=== PATIENT | female | born 1985 | race Caucasian/White ===

== ENCOUNTER 2018-05-27 11:59 | Outpatient (CLI) | payer OTHER ==
[~2018-05-27] VITALS: Ht 165.1 cm; Wt 106.8 kg
[~2018-05-27 11:59] MED LIST: IBUP-1222 PO; METF100P3 PO; OXYC-302 PO; PNV11TAB PO
[2018-05-27 12:24] VITALS: BP 132/80
[2018-05-27 12:43] LABS: MICROSCOPIC INDICATED
[2018-05-27 12:45] LABS: BASOPHILS # (AUTO) 0.02 x10^3/uL (0-0.1); BASOPHILS % (AUTO) 0 % (0-1); EOSINOPHILS # (AUTO) 0.04 x10^3/uL (0-0.4); EOSINOPHILS % (AUTO) 1 % (1-7); LYMPHOCYTES # (AUTO) 1.62 x10^3/uL (1-3.4); LYMPHOCYTES % (AUTO) 23 % (22-44); MD NO; MEAN CORPUSCULAR HEMOGLOBIN 24.9 pg (27.0-34.8); MEAN CORPUSCULAR HGB CONC 32.6 g/dL (32.4-35.8); MEAN CORPUSCULAR VOLUME 76.1 fL (80-100); MONOCYTES # (AUTO) 0.68 x10^3/uL (0.2-0.8); MONOCYTES % (AUTO) 10 % (2-9); NEUTROPHILS # (AUTO) 4.77 x10^3/uL (1.8-6.8); NEUTROPHILS % (AUTO) 67 % (42-75); PLATELET COUNT 216 x10^3/uL (130-400); RED CELL DISTRIBUTION WIDTH 15.7 % (9.6-15.2)
[2018-05-27 12:56] LABS: ALANINE AMINOTRANSFERASE 17 U/L (12-78); ALBUMIN 2.4 g/dL (3.4-5.0); ANION GAP 11 mmol/L (5-15); CALCIUM 8.2 mg/dL (8.5-10.1); CHLORIDE 107 mmol/L (98-107)
[2018-05-27 12:58] LABS: ALKALINE PHOSPHATASE 115 U/L (45-117); BILIRUBIN, DIRECT < 0.1 mg/dL (0.1-0.2); BILIRUBIN,TOTAL 0.3 mg/dL (0.2-1.0); TOTAL PROTEIN 6.5 g/dL (6.4-8.2)
[2018-05-27] MEDS ORDERED: METF10007 PO (13:17)
[2018-05-27] MEDS ORDERED: BETAMETHASONE 6 MG/ML, 5ML IM ONE ×2 (14:24→14:30)
== END 2018-05-27 14:55 | disposition home or self-care (01) ==
LOC: LDOP 11:59
PROVIDERS: ATTEND Obstetrics & Gynecology
DX: O13.3 Gestational [pregnancy-induced] hypertension without significant proteinuria, third trimester (principal); O30.003 Twin pregnancy, unspecified number of placenta and unspecified number of amniotic sacs, third trimester; Z3A.35 35 weeks gestation of pregnancy
CPT/HCPCS: 36415; 59025; 80053; 81001; 81050; 82248; 82570; 84156; 84550; 85025; 96372; 99201; J0702; G0463

== ENCOUNTER 2018-05-28 14:08 | Outpatient (CLI) | payer OTHER ==
[~2018-05-28] VITALS: Ht 165.1 cm; Wt 106.8 kg
[~2018-05-28 14:08] MED LIST changes: +METF10007 PO
[2018-05-28 14:28] VITALS: BP 126/69
[2018-05-28 14:55] LABS: BASOPHILS # (AUTO) 0.03 x10^3/uL (0-0.1); BASOPHILS % (AUTO) 0 % (0-1); EOSINOPHILS % (AUTO) 0 % (1-7); LYMPHOCYTES # (AUTO) 1.69 x10^3/uL (1-3.4); LYMPHOCYTES % (AUTO) 21 % (22-44); MD NO; MEAN CORPUSCULAR HEMOGLOBIN 25.5 pg (27.0-34.8); MEAN CORPUSCULAR HGB CONC 33.1 g/dL (32.4-35.8); MEAN CORPUSCULAR VOLUME 76.9 fL (80-100); MEAN PLATELET VOLUME 8.1 fL (7.4-10.4); MONOCYTES % (AUTO) 9 % (2-9); NEUTROPHILS # (AUTO) 5.64 x10^3/uL (1.8-6.8); NEUTROPHILS % (AUTO) 70 % (42-75); PLATELET COUNT 234 x10^3/uL (130-400); RED BLOOD COUNT 3.92 x10^6/uL (3.82-5.3); RED CELL DISTRIBUTION WIDTH 16.3 % (9.6-15.2)
[2018-05-28] MEDS ORDERED: BETAMETHASONE 6 MG/ML, 5ML IM ONE (15:00)
[2018-05-28 15:06] LABS: ALANINE AMINOTRANSFERASE 20 U/L (12-78); ALBUMIN 2.5 g/dL (3.4-5.0); ANION GAP 11 mmol/L (5-15); CALCIUM 8.8 mg/dL (8.5-10.1); CHLORIDE 106 mmol/L (98-107); CREATININE 0.98 mg/dL (0.55-1.02)
[2018-05-28 15:08] LABS: ALKALINE PHOSPHATASE 113 U/L (45-117); BILIRUBIN,TOTAL 0.3 mg/dL (0.2-1.0); TOTAL PROTEIN 6.5 g/dL (6.4-8.2)
== END 2018-05-28 15:57 | disposition home or self-care (01) ==
LOC: LDOP 14:08
PROVIDERS: ATTEND Obstetrics & Gynecology
DX: O13.3 Gestational [pregnancy-induced] hypertension without significant proteinuria, third trimester (principal); Z3A.35 35 weeks gestation of pregnancy
CPT/HCPCS: 36415; 59025; 80053; 82570; 84156; 84550; 85025; 96372; 99211; J0702; G0463

== ENCOUNTER 2018-06-04 08:00 | Inpatient (IN) | payer OTHER ==
[~2018-06-04] VITALS: Ht 165.1 cm; Wt 105.0 kg
[2018-06-04] MEDS ORDERED: LACTATED RINGERS 1,000 ML IV SCH (11:01)
[2018-06-04] MEDS ORDERED: OXYTOCIN 30U/ 0.9% NaCL 500ML 500 ML IV SCH (11:01)
[2018-06-04 11:28] VITALS: BP 136/85
[2018-06-04] MEDS ORDERED: METOCLOPRAMIDE 5 MG/ML, 2ML IV ONE (11:30)
[2018-06-04] MEDS ORDERED: LACTATED RINGERS 1,000 ML IVBOLUS ONE (11:30)
[2018-06-04] MEDS ORDERED: SODIUM CITRATE/CITRIC ACID 30 ML UDC PO ONE (11:30)
[2018-06-04 11:37] LABS: BASOPHILS # (AUTO) 0.02 x10^3/uL (0-0.1); BASOPHILS % (AUTO) 0 % (0-1); EOSINOPHILS # (AUTO) 0.05 x10^3/uL (0-0.4); EOSINOPHILS % (AUTO) 1 % (1-7); LYMPHOCYTES # (AUTO) 1.47 x10^3/uL (1-3.4); LYMPHOCYTES % (AUTO) 21 % (22-44); MD NO; MEAN CORPUSCULAR HEMOGLOBIN 24.2 pg (27.0-34.8); MEAN CORPUSCULAR HGB CONC 31.8 g/dL (32.4-35.8); MEAN PLATELET VOLUME 8.4 fL (7.4-10.4); MONOCYTES # (AUTO) 0.56 x10^3/uL (0.2-0.8); MONOCYTES % (AUTO) 8 % (2-9); NEUTROPHILS # (AUTO) 5.08 x10^3/uL (1.8-6.8); NEUTROPHILS % (AUTO) 71 % (42-75); PLATELET COUNT 202 x10^3/uL (130-400); RED BLOOD COUNT 4.01 x10^6/uL (3.82-5.3); RED CELL DISTRIBUTION WIDTH 16.3 % (9.6-15.2)
[2018-06-04] MEDS ORDERED: NEWBORN KIT ONE ×2 (11:58)
[2018-06-04] MEDS ORDERED: OXYTOCIN 30U/ 0.9% NaCL 500ML 500 ML ONE ×2 (12:10→15:37)
[2018-06-04] MEDS ORDERED: METOCLOPRAMIDE 5 MG/ML, 2ML ONE ×2 (12:11→12:16)
[2018-06-04] MEDS ORDERED: SODIUM CITRATE/CITRIC ACID 30 ML UDC ONE (12:11)
[2018-06-04] MEDS ORDERED: morphine SULFATE/PF 0.5 MG/ML, 10ML ONE (12:37)
[2018-06-04] MEDS ORDERED: DEXAMETHASONE 4 MG/ML, 1ML ONE (12:38)
[2018-06-04] MEDS ORDERED: CEFAZOLIN 1,000 MG ONE (12:38)
[2018-06-04] MEDS ORDERED: OXYTOCIN 10 UNITS/ML, 1ML ONE ×2 (12:38→13:05)
[2018-06-04] MEDS ORDERED: KETOROLAC 30 MG/1 ML ONE (12:38)
[2018-06-04] MEDS ORDERED: ONDANSETRON 2MG/ML, 2ML ONE (12:38)
[2018-06-04] MEDS ORDERED: WATER-INJECTION,STERILE 10 ML IV ONE (12:38)
[2018-06-04] MEDS ORDERED: MIDAZOLAM 1 MG/ML, 2ML ONE (12:59)
[2018-06-04] MEDS: LACTATED RINGERS 1,000 ML IV SCH ×4 (13:43→23:43)
[2018-06-04] MEDS ORDERED: OXYcodone/APAP 5/325MG TABLET PO PRN (14:00)
[2018-06-04] MEDS ORDERED: MISOPROSTOL 200 MCG TABLET PR PRN (14:00)
[2018-06-04] MEDS ORDERED: ONDANSETRON 2MG/ML, 2ML IV PRN (14:00)
[2018-06-04] MEDS ORDERED: morphine SULFATE 10 MG/ML, 1ML IVPush PRN (14:00)
[2018-06-04] MEDS: OXYTOCIN 30U/ 0.9% NaCL 500ML 500 ML IV SCH ×2 (15:39→23:43)
[2018-06-04 16:30] VITALS: BP 136/80
[2018-06-04 19:50] VITALS: BP 130/77
[2018-06-04] MEDS: KETOROLAC 30 MG/1 ML IV SCH (20:16)
[2018-06-04 21:39] LABS: BASOPHILS # (AUTO) 0.03 x10^3/uL (0-0.1); BASOPHILS % (AUTO) 0 % (0-1); EOSINOPHILS % (AUTO) 0 % (1-7); LYMPHOCYTES # (AUTO) 1.15 x10^3/uL (1-3.4); LYMPHOCYTES % (AUTO) 11 % (22-44); MD NO; MEAN CORPUSCULAR HEMOGLOBIN 24.4 pg (27.0-34.8); MEAN CORPUSCULAR HGB CONC 32.1 g/dL (32.4-35.8); MEAN CORPUSCULAR VOLUME 76.2 fL (80-100); MEAN PLATELET VOLUME 8.3 fL (7.4-10.4); MONOCYTES # (AUTO) 0.54 x10^3/uL (0.2-0.8); MONOCYTES % (AUTO) 5 % (2-9); NEUTROPHILS # (AUTO) 8.79 x10^3/uL (1.8-6.8); NEUTROPHILS % (AUTO) 84 % (42-75); PLATELET COUNT 193 x10^3/uL (130-400); RED BLOOD COUNT 3.76 x10^6/uL (3.82-5.3); RED CELL DISTRIBUTION WIDTH 16.5 % (9.6-15.2)
[2018-06-05] VITALS: BP 129/76
[2018-06-05] MEDS: KETOROLAC 30 MG/1 ML IV SCH ×4 (01:48→19:49)
[2018-06-05 04:30] VITALS: BP 119/79
[2018-06-05] MEDS: LACTATED RINGERS 1,000 ML IV SCH ×5 (05:43→21:43)
[2018-06-05 07:20] VITALS: BP 117/67
[2018-06-05] MEDS: DOCUSATE 100 MG CAPSULE PO PRN ×2 (08:04→19:49)
[2018-06-05] MEDS: PRENATAL VIT/IRON/FA 1 EACH TABLET PO SCH (09:00)
[2018-06-05] MEDS: OXYTOCIN 30U/ 0.9% NaCL 500ML 500 ML IV SCH ×2 (09:43→19:43)
[2018-06-05 11:25] VITALS: BP 111/61
[2018-06-05] MEDS: OXYcodone IR 5MG TABLET PO PRN ×3 (13:41→22:32)
[2018-06-05 20:10] VITALS: BP 134/67
[2018-06-06] MEDS: KETOROLAC 30 MG/1 ML IV SCH ×2 (01:53→08:55)
[2018-06-06] MEDS: OXYcodone IR 5MG TABLET PO PRN ×2 (02:54→08:55)
[2018-06-06] MEDS: LACTATED RINGERS 1,000 ML IV SCH ×2 (05:43)
[2018-06-06] MEDS: OXYTOCIN 30U/ 0.9% NaCL 500ML 500 ML IV SCH (05:43)
[2018-06-06] MEDS: DOCUSATE 100 MG CAPSULE PO PRN (08:55)
[2018-06-06 09:00] VITALS: BP 134/79
[2018-06-06] MEDS: PRENATAL VIT/IRON/FA 1 EACH TABLET PO SCH (09:00)
[2018-06-06] MEDS ORDERED: hydrOXYzine 25 MG/ML IM PRN (11:00)
[2018-06-06] MEDS ORDERED: IBUP-1222 PO (11:27)
[2018-06-06] MEDS ORDERED: OXYC-302 PO (11:27)
[2018-06-06] MEDS ORDERED: IBUPROFEN 600 MG TABLET PO PRN (14:00)
== END 2018-06-06 13:05 | disposition home or self-care (01) | DRG 788 ==
LOC: LDIP 10:45 → 2NW 15:44
PROVIDERS: ADMIT Obstetrics & Gynecology; ATTEND Obstetrics & Gynecology
PROC: 10D00Z1 Extraction of Products of Conception, Low, Open Approach (ICD-10-PCS; principal; 2018-06-04)
DX: O14.04 Mild to moderate pre-eclampsia, complicating childbirth (principal); O30.043 Twin pregnancy, dichorionic/diamniotic, third trimester; O34.211 Maternal care for low transverse scar from previous cesarean delivery; Z37.2 Twins, both liveborn; Z3A.37 37 weeks gestation of pregnancy; Z83.3 Family history of diabetes mellitus; Z86.32 Personal history of gestational diabetes
CPT/HCPCS: 36415; 85025; 86850; 86900; 88307; G0378; J0690; J1100; J1885; J2250; J2274; J2405; J2590; J2765; J7120

== ENCOUNTER 2018-06-21 17:19 | Inpatient (IN) | payer OTHER ==
[~2018-06-21] VITALS: Ht 167.6 cm; Wt 73.0 kg
[2018-06-21 17:44] LABS: BASOPHILS # (AUTO) 0.05 x10^3/uL (0-0.1); BASOPHILS % (AUTO) 1 % (0-1); EOSINOPHILS # (AUTO) 0.18 x10^3/uL (0-0.4); EOSINOPHILS % (AUTO) 2 % (1-7); LYMPHOCYTES # (AUTO) 2.35 x10^3/uL (1-3.4); LYMPHOCYTES % (AUTO) 22 % (22-44); MD NO; MEAN CORPUSCULAR HEMOGLOBIN 24.4 pg (27.0-34.8); MEAN CORPUSCULAR HGB CONC 31.8 g/dL (32.4-35.8); MEAN CORPUSCULAR VOLUME 76.8 fL (80-100); MONOCYTES # (AUTO) 0.63 x10^3/uL (0.2-0.8); MONOCYTES % (AUTO) 6 % (2-9); NEUTROPHILS # (AUTO) 7.43 x10^3/uL (1.8-6.8); NEUTROPHILS % (AUTO) 70 % (42-75); PLATELET COUNT 368 x10^3/uL (130-400); RED BLOOD COUNT 4.74 x10^6/uL (3.82-5.3); RED CELL DISTRIBUTION WIDTH 17.8 % (9.6-15.2)
[2018-06-21 17:54] LABS: ALANINE AMINOTRANSFERASE 30 U/L (12-78); ALBUMIN 3.1 g/dL (3.4-5.0); ANION GAP 5 mmol/L (5-15); CALCIUM 9.8 mg/dL (8.5-10.1); CHLORIDE 105 mmol/L (98-107); CREATININE 0.84 mg/dL (0.55-1.02)
[2018-06-21 18:00] LABS: ALKALINE PHOSPHATASE 96 U/L (45-117); BILIRUBIN,TOTAL 0.3 mg/dL (0.2-1.0); TOTAL PROTEIN 8.3 g/dL (6.4-8.2); TROPONIN I < 0.015 ng/mL (0.000-0.045)
--- NOTE | 2018-06-21 18:05 | NUR ---
ASSUMED CARE OF PT. PT PRESENTS TO ED WITH C/O CONSISTENT CP START YESTERDAY AND RESLOVING AFTER TAKING TUMS AT ABOUT 1300. SOB ALONG WITH CP. STATES INTERMITTENT CP AFTER 1600. PT STATES POSTPARTRUM FOR ABOUT 2 WEEKS. NO HX OF BLOOD CLOTS. POC DISCUSSED. AWAITING EVAL AND ORDERS. WILL CONTINUE TO MONITOR.
--- NOTE | 2018-06-21 18:55 | NUR ---
PT TO CT VIA W/C.
[2018-06-21] MEDS ORDERED: OMNIPAQUE 350 MG/ML, 100ML BOTTLE ONE (19:06)
--- NOTE | 2018-06-21 19:35 | NUR ---
ERMD AT BEDSIDE TO UPDATE POC.
[2018-06-21] MEDS ORDERED: HEPARIN 5,000 UNITS/ML, 1ML IV ONE (20:00)
[2018-06-21] MEDS ORDERED: HEPARIN 25,000 UNITS/500ML PMX 500 ML IV PRN (20:00)
[2018-06-21] MEDS ORDERED: HEPARIN 25,000 UNITS/500ML PMX 500 ML ONE (20:18)
[2018-06-21] MEDS ORDERED: HEPARIN 5,000 UNITS/ML, 1ML ONE (20:18)
--- NOTE | 2018-06-21 20:32 | NUR ---
HEPARIN STARTED PER PROTOCOL. HEPARIN VERIFIED BY JERRY LAWS. REPORT GIVEN TO JERRY LAGUNAS. HOSPITALIST AT BEDSIDE. PT TO FLOOR ONCE HOSPITALIST FINISHED.
[2018-06-21] MEDS: INSULIN LISPRO 100 UNITS/ML, PEN SQ-INSULIN SCH (21:00)
[2018-06-21] MEDS ORDERED: DOCUSATE 100 MG CAPSULE PO PRN (21:00)
[2018-06-21] MEDS ORDERED: hydrALAzine 20 MG/ML, 1ML IVPush PRN (21:00)
[2018-06-21] MEDS ORDERED: ACETAMINOPHEN 325 MG TABLET PO PRN (21:00)
[2018-06-21 21:24] LABS: FREE T4 (FREE THYROXINE) 1.08 ng/dL (0.76-1.46); HEMOGLOBIN A1C 6.2 % (4.2-6.3); THYROID STIMULATING HORMONE 0.65 mIU/L (0.358-3.740)
[2018-06-21] MEDS: OXYcodone IR 5MG TABLET PO PRN (21:24)
[2018-06-21 21:28] VITALS: BP 126/86
[2018-06-21] MEDS ORDERED: [UNRECOGNIZED DRUG - OTHER] PO SCH (21:30)
[2018-06-21] MEDS ORDERED: DSS PO SCH (21:30)
[2018-06-21] MEDS: PRENATAL MC SCH (21:30)
[2018-06-21] MEDS ORDERED: IRON FUMARATE PO SCH (21:30)
[2018-06-22 00:29] VITALS: BP 103/69
[2018-06-22] MEDS: SODIUM CHLORIDE 0.9% 1,000 ML IV SCH ×2 (00:50→12:12)
[2018-06-22] MEDS: OXYcodone IR 5MG TABLET PO PRN ×4 (01:56→15:31)
[2018-06-22 02:05] VITALS: BP 95/60
[2018-06-22 02:22] LABS: BASOPHILS # (AUTO) 0.01 x10^3/uL (0-0.1); BASOPHILS % (AUTO) 0 % (0-1); EOSINOPHILS # (AUTO) 0.07 x10^3/uL (0-0.4); EOSINOPHILS % (AUTO) 1 % (1-7); LYMPHOCYTES # (AUTO) 1.74 x10^3/uL (1-3.4); LYMPHOCYTES % (AUTO) 14 % (22-44); MD NO; MEAN CORPUSCULAR HEMOGLOBIN 24.1 pg (27.0-34.8); MEAN CORPUSCULAR HGB CONC 31.8 g/dL (32.4-35.8); MEAN CORPUSCULAR VOLUME 75.8 fL (80-100); MEAN PLATELET VOLUME 7.3 fL (7.4-10.4); MONOCYTES # (AUTO) 0.65 x10^3/uL (0.2-0.8); MONOCYTES % (AUTO) 5 % (2-9); NEUTROPHILS # (AUTO) 9.98 x10^3/uL (1.8-6.8); NEUTROPHILS % (AUTO) 80 % (42-75); PLATELET COUNT 336 x10^3/uL (130-400); RED BLOOD COUNT 4.42 x10^6/uL (3.82-5.3); RED CELL DISTRIBUTION WIDTH 18.3 % (9.6-15.2)
[2018-06-22 02:33] LABS: ALANINE AMINOTRANSFERASE 28 U/L (12-78); ALBUMIN 2.9 g/dL (3.4-5.0); ANION GAP 5 mmol/L (5-15); CALCIUM 8.7 mg/dL (8.5-10.1); CHLORIDE 105 mmol/L (98-107); CHOLESTEROL, TOTAL 180 mg/dL (140-239); CREATININE 0.86 mg/dL (0.55-1.02)
[2018-06-22 02:35] LABS: ALKALINE PHOSPHATASE 85 U/L (45-117); BILIRUBIN,TOTAL 0.7 mg/dL (0.2-1.0); CHOL/HDL RATIO 3.7; HDL CHOL % 27 % (28-40); HDL CHOLESTEROL (DIRECT) 49 mg/dL (40-60); LDL CHOLESTEROL,CALCULATED 94 mg/dL (54-169); LDL/HDL RATIO 1.9 (0.5-3.0); TOTAL PROTEIN 7.9 g/dL (6.4-8.2); TRIGLYCERIDES 185 mg/dL (50-200); VLDL CHOLESTEROL 37 mg/dL (0-25)
[2018-06-22] MEDS: HEPARIN 5,000 UNITS/ML, 1ML IV PRN ×2 (02:45→09:52)
[2018-06-22 05:33] LABS: MICROSCOPIC INDICATED
[2018-06-22 05:34] LABS: CULTURE INDICATED? YES
[2018-06-22] MEDS: INSULIN LISPRO 100 UNITS/ML, PEN SQ-INSULIN SCH (07:00)
[2018-06-22 07:12] VITALS: BP 102/68
[2018-06-22] MEDS: PRENATAL MC SCH (08:00)
[2018-06-22 09:45] VITALS: BP 111/72
[2018-06-22 12:15] VITALS: BP 116/76
[2018-06-22] MEDS ORDERED: ENOX80SY4 SQ (13:28)
[2018-06-22] MEDS ORDERED: ENOXAPARIN 80 MG/0.8 ML SQ SCH (14:00)
== END 2018-06-22 17:02 | disposition home or self-care (01) | DRG 776 ==
LOC: ED 19:40 → EDIP 19:46 → 4WST 20:52
PROVIDERS: ADMIT Internal Medicine; ATTEND Internal Medicine
DX: O88.23 Thromboembolism in the puerperium (principal); O24.33 Unspecified pre-existing diabetes mellitus in the puerperium; E11.9 Type 2 diabetes mellitus without complications
CPT/HCPCS: 36415; 71045; 71275; 80053; 80061; 81001; 82962; 83036; 83690; 83735; 84439; 84443; 84484; 84703; 85025; 85379; 85520; 87086; 93005; 93306; 93970; 96365; G0378; J1644; J1650; Q9967; J7030

== ENCOUNTER 2019-07-19 10:28 | Inpatient (IN) | payer OTHER ==
[~2019-07-19] VITALS: Ht 165.1 cm; Wt 98.6 kg
[~2019-07-19 10:28] MED LIST changes: +ENOX80SY4 SQ
[2019-07-19] MEDS ORDERED: LACTATED RINGERS 1,000 ML IV SCH (10:53)
[2019-07-19] MEDS ORDERED: SODIUM CITRATE/CITRIC ACID 30 ML UDC PO ONE (11:00)
[2019-07-19] MEDS ORDERED: METOCLOPRAMIDE 5 MG/ML, 2ML IV ONE (11:00)
[2019-07-19] MEDS ORDERED: LACTATED RINGERS 1,000 ML IVBOLUS ONE (11:00)
[2019-07-19 11:17] LABS: BASOPHILS # (AUTO) 0.04 x10^3/uL (0-0.1); BASOPHILS % (AUTO) 1 % (0-1); EOSINOPHILS # (AUTO) 0.04 x10^3/uL (0-0.4); EOSINOPHILS % (AUTO) 1 % (1-7); LYMPHOCYTES # (AUTO) 1.43 x10^3/uL (1-3.4); LYMPHOCYTES % (AUTO) 18 % (22-44); MD NO; MEAN CORPUSCULAR HEMOGLOBIN 29.1 pg (27.0-34.8); MEAN CORPUSCULAR HGB CONC 33.3 g/dL (32.4-35.8); MEAN CORPUSCULAR VOLUME 87.2 fL (80-100); MEAN PLATELET VOLUME 7.6 fL (7.4-10.4); MONOCYTES # (AUTO) 0.51 x10^3/uL (0.2-0.8); MONOCYTES % (AUTO) 7 % (2-9); NEUTROPHILS % (AUTO) 74 % (42-75); PLATELET COUNT 238 x10^3/uL (130-400); RED BLOOD COUNT 4.23 x10^6/uL (3.82-5.3); RED CELL DISTRIBUTION WIDTH 14.1 % (9.6-15.2)
[2019-07-19] MEDS ORDERED: NEWBORN KIT ONE (11:18)
[2019-07-19] MEDS ORDERED: SODIUM CITRATE/CITRIC ACID 30 ML UDC ONE (11:18)
[2019-07-19] MEDS ORDERED: OXYTOCIN 30U/ 0.9% NaCL 500ML 500 ML ONE (11:18)
[2019-07-19] MEDS ORDERED: METOCLOPRAMIDE 5 MG/ML, 2ML ONE (11:18)
[2019-07-19] MEDS ORDERED: morphine SULFATE/PF 0.5 MG/ML, 10ML ONE (12:08)
[2019-07-19] MEDS ORDERED: FENTANYL PF 100 MCG/2ML ONE (12:08)
[2019-07-19] MEDS ORDERED: CEFAZOLIN 1,000 MG ONE (12:20)
[2019-07-19] MEDS ORDERED: OXYTOCIN 10 UNITS/ML, 1ML ONE ×2 (12:20→12:29)
[2019-07-19] MEDS ORDERED: DEXAMETHASONE 4 MG/ML, 1ML ONE (12:20)
[2019-07-19] MEDS ORDERED: KETOROLAC 30 MG/1 ML ONE (12:20)
[2019-07-19] MEDS ORDERED: ONDANSETRON 2MG/ML, 2ML ONE (12:20)
[2019-07-19] MEDS ORDERED: WATER-INJECTION,STERILE 10 ML IV ONE (12:20)
[2019-07-19] MEDS ORDERED: PHENYLEPHRINE 10 MG/ML ONE (12:21)
[2019-07-19] MEDS ORDERED: SODIUM CHLORIDE 0.9% PF 10ML ONE (12:21)
[2019-07-19] MEDS: LACTATED RINGERS 1,000 ML IV SCH ×4 (13:09→23:09)
[2019-07-19] MEDS ORDERED: MISOPROSTOL 200 MCG TABLET PR PRN (13:30)
[2019-07-19] MEDS: KETOROLAC 30 MG/1 ML IV SCH ×2 (13:30→19:43)
[2019-07-19] MEDS ORDERED: OXYcodone IR 5MG TABLET PO PRN (13:30)
[2019-07-19] MEDS ORDERED: SIMETHICONE 80 MG CHEW TAB PO PRN (13:30)
[2019-07-19] MEDS ORDERED: ACETAMINOPHEN 325 MG TABLET PO PRN ×2 (13:30)
[2019-07-19] MEDS ORDERED: morphine SULFATE 10 MG/ML, 1ML IVPush PRN (13:30)
[2019-07-19] MEDS ORDERED: ONDANSETRON 2MG/ML, 2ML IV PRN (13:30)
[2019-07-19] MEDS: OXYTOCIN 30U/ 0.9% NaCL 500ML 500 ML IV SCH ×2 (13:58→23:09)
[2019-07-19] MEDS ORDERED: OXYcodone 5 MG/5 ML ORAL.SOL UDC ONE (14:54)
[2019-07-19] MEDS ORDERED: OXYcodone 5 MG/5 ML ORAL.SOL UDC PO PRN (15:00)
[2019-07-19 16:10] VITALS: BP 114/72
[2019-07-19] MEDS ORDERED: DIPHENHYDRAMINE 50 MG/ML, 1ML IV PRN (17:30)
[2019-07-19] MEDS ORDERED: OXYcodone/APAP 5/325MG TABLET PO PRN (17:30)
[2019-07-19] MEDS ORDERED: EPHEDRINE 50 MG/ML, 1ML IVPush PRN (17:30)
[2019-07-19] MEDS ORDERED: NALOXONE 0.4 MG/ML, 1ML IV PRN (17:30)
[2019-07-19] MEDS ORDERED: NO SEDATIVES, TRANQUILIZERS OR ANTIEMETICS XX SCH (17:30)
[2019-07-19] MEDS ORDERED: ONDANSETRON 2MG/ML, 2ML IVPush PRN (17:30)
[2019-07-19 20:10] VITALS: BP 110/64
[2019-07-19 21:14] LABS: BASOPHILS % (AUTO) 0 % (0-1); EOSINOPHILS % (AUTO) 0 % (1-7); LYMPHOCYTES # (AUTO) 1.14 x10^3/uL (1-3.4); LYMPHOCYTES % (AUTO) 10 % (22-44); MD NO; MEAN CORPUSCULAR HEMOGLOBIN 29.3 pg (27.0-34.8); MEAN CORPUSCULAR HGB CONC 33.5 g/dL (32.4-35.8); MEAN CORPUSCULAR VOLUME 87.5 fL (80-100); MEAN PLATELET VOLUME 7.5 fL (7.4-10.4); MONOCYTES # (AUTO) 0.37 x10^3/uL (0.2-0.8); MONOCYTES % (AUTO) 3 % (2-9); NEUTROPHILS # (AUTO) 9.58 x10^3/uL (1.8-6.8); NEUTROPHILS % (AUTO) 86 % (42-75); PLATELET COUNT 236 x10^3/uL (130-400); RED BLOOD COUNT 4.06 x10^6/uL (3.82-5.3); RED CELL DISTRIBUTION WIDTH 14.2 % (9.6-15.2)
[2019-07-20 00:20] VITALS: BP 105/64
[2019-07-20] MEDS: KETOROLAC 30 MG/1 ML IV SCH ×4 (01:43→20:06)
[2019-07-20] MEDS: LACTATED RINGERS 1,000 ML IV SCH ×5 (05:09→21:09)
[2019-07-20 06:00] VITALS: BP 115/71
[2019-07-20] MEDS: PRENATAL VIT/IRON/FA 1 EACH TABLET PO SCH (07:38)
[2019-07-20] MEDS: DOCUSATE 100 MG CAPSULE PO PRN (07:38)
[2019-07-20] MEDS: OXYcodone/APAP 5/325MG TABLET PO PRN ×2 (07:41→17:49)
[2019-07-20 07:53] VITALS: BP 107/68
[2019-07-20] MEDS: OXYTOCIN 30U/ 0.9% NaCL 500ML 500 ML IV SCH ×2 (09:09→19:09)
[2019-07-20 12:30] VITALS: BP 106/64
[2019-07-20 16:07] VITALS: BP 114/69
[2019-07-20 20:05] VITALS: BP 119/72
[2019-07-20] MEDS ORDERED: ENOXAPARIN 40 MG/0.4 ML SQ SCH (21:00)
[2019-07-21] MEDS: OXYcodone/APAP 5/325MG TABLET PO PRN ×2 (02:35→06:23)
[2019-07-21] MEDS: KETOROLAC 30 MG/1 ML IV SCH ×2 (02:35→08:27)
[2019-07-21] MEDS: OXYTOCIN 30U/ 0.9% NaCL 500ML 500 ML IV SCH ×2 (05:09→10:25)
[2019-07-21] MEDS: LACTATED RINGERS 1,000 ML IV SCH ×2 (05:09)
[2019-07-21 07:05] VITALS: BP 118/73
[2019-07-21] MEDS: PRENATAL VIT/IRON/FA 1 EACH TABLET PO SCH (08:27)
[2019-07-21] MEDS: DOCUSATE 100 MG CAPSULE PO PRN (08:27)
[2019-07-21] MEDS ORDERED: IBUP200T49 PO (12:23)
[2019-07-21] MEDS ORDERED: IBUPROFEN 600 MG TABLET PO PRN (13:30)
== END 2019-07-21 14:04 | disposition home or self-care (01) | DRG 784 ==
LOC: LDIP 10:28 → 2NW 15:04
PROVIDERS: ADMIT Obstetrics & Gynecology; ATTEND Obstetrics & Gynecology
PROC: 10D00Z1 Extraction of Products of Conception, Low, Open Approach (ICD-10-PCS; principal; 2019-07-19)
PROC: 0UB70ZZ Excision of Bilateral Fallopian Tubes, Open Approach (ICD-10-PCS; 2019-07-19)
DX: O34.211 Maternal care for low transverse scar from previous cesarean delivery (principal); O10.02 Pre-existing essential hypertension complicating childbirth; O69.81X0 Labor and delivery complicated by cord around neck, without compression, not applicable or unspecified; O24.425 Gestational diabetes mellitus in childbirth, controlled by oral hypoglycemic drugs; Z37.0 Single live birth; Z30.2 Encounter for sterilization; Z3A.38 38 weeks gestation of pregnancy; Z79.01 Long term (current) use of anticoagulants; Z86.711 Personal history of pulmonary embolism
CPT/HCPCS: 82962; 85025; 86592; 86850; 86900; 88302; G0378; J0690; J1100; J1650; J1885; J2274; J2405; J3010; J2370; J2590; J2765; J7120